=== PATIENT | female | born 1990 | race Caucasian/White ===

== ENCOUNTER 2021-12-23 11:27 | Emergency (ER) | payer OTHER ==
[~2021-12-23 11:27] MED LIST: AUGMENTIN 875-875 MG PO
== END 2021-12-23 11:52 | disposition home or self-care (01) ==
LOC: ED 11:27
DX: S61.412A Laceration without foreign body of left hand, initial encounter (principal); Z88.0 Allergy status to penicillin; Z79.2 Long term (current) use of antibiotics; Z98.890 Other specified postprocedural states; W27.2XXA Contact with scissors, initial encounter; Y93.89 Activity, other specified; Y92.89 Other specified places as the place of occurrence of the external cause; Y99.8 Other external cause status